=== PATIENT | male | born 2000 | race Caucasian/White ===

== ENCOUNTER 2022-10-29 09:54 | Emergency (ER) | payer SELFPAY ==
[2022-10-29] MEDS ORDERED: Morphine 4 MG/ML Syringe IVPUSH ONE ×2 (10:29→15:10)
[2022-10-29] MEDS ORDERED: ceFAZolin 1 GM in Sodium Chloride 0.9% 50 ML IV ONE (10:30)
== END 2022-10-29 16:58 | disposition home or self-care (01) ==
LOC: JD.ED 09:54
DX: S62.634A Displaced fracture of distal phalanx of right ring finger, initial encounter for closed fracture (principal); J45.909 Unspecified asthma, uncomplicated; F17.210 Nicotine dependence, cigarettes, uncomplicated; W22.8XXA Striking against or struck by other objects, initial encounter; Y92.89 Other specified places as the place of occurrence of the external cause; Y99.0 Civilian activity done for income or pay
CPT/HCPCS: 73130; 96374; 96375; 96376; 99283; J0690; J2270; J3490; 99284